=== PATIENT | female | born 1985 | race African-American/Black ===

== ENCOUNTER 2017-01-20 04:40 | Inpatient (IN) | payer OTHER ==
[2017-01-20] MEDS ORDERED: DEXTROSE 5%-LACTATED RINGERS 1,000 ML IV ONE (05:30)
[2017-01-20 09:28] VITALS: BMI 36.7
[2017-01-20] MEDS ORDERED: AMPICILLIN - 2 GM in SODIUM CHLORIDE 100 ML IVPB ONE (09:41)
[2017-01-20 09:53] LABS: CALCIUM 8.2 mg/dL (8.5-10.1); CREATININE 0.5 mg/dL (0.55-1.02)
[2017-01-20 09:58] LABS: BASOPHIL 0.1 % (0-2.0); EOSINOPHIL 0.9 % (0-4.5); MCH 22.2 pg (25.7-33.7); MCHC 32.3 g/dl (32.0-36.0); MEAN CELL VOLUME 68.8 fl (80-96); MEAN PLT VOLUME 7.9 fl (7.5-11.1); NEUTROPHILS 61.4 % (42.8-82.8); PLATELET COUNT 248 K/MM3 (134-434); RDW 18.9 % (11.6-15.6); WHITE BLOOD COUNT 5.9 K/mm3 (4.0-10.0)
[2017-01-20] MEDS: AMPICILLIN - 1 GM in SODIUM CHLORIDE 100 ML IVPB SCH ×2 (10:00→11:36)
[2017-01-20] MEDS: OXYTOCIN 15 UNITS/ LR 250 ML 250 ML IVPB SCH (10:00)
[2017-01-20 10:09] LABS: INR 1.04 (0.82-1.09); PROTHROMBIN TIME (PATIENT) 11.5 SEC (9.98-11.88)
[2017-01-20] MEDS ORDERED: AMPICILLIN - 2G/100 ML IVPB ONE (10:09)
--- NOTE | 2017-01-20 10:13 | HP ---
Past Medical History - Primary Care Physician PCP:: David Wei - Admission Chief Complaint: 31 yo P2 with at EGA 39w5d with PROM, not in labor. History of Present Illness: Pt reports LOF since 10pm last night. complicated by maternal obesity. 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: Yes: Migraine Cardiovascular: No: AFIB, Aneurysm, Aortic Insufficiency, Aortic Stenosis, CAD, CHF, Deep Vein Thrombosis, HTN, Hyperlipdemia, [place], Mitral Insufficiency, Mitral Stenosis, Murmur, Pulmonary Hypertension, Other Pulmonary: No: Asthma, Bronchitis, Cancer, COPD, O2 Dependent, Pneumonia, Previously Intubated, Pulmonary Embolus, Pulmonary Fibrosis, Sleep Apnea, Other Gastrointestinal: No: Ascites, Cancer, Constipation, Crohn's Disease, Diverticulitis, Diverticulosis, Esophageal Varices, Gastritis, GERD, GI Bleed, Hemorrhoids, Hiatal Hernia, Inflamatory Bowel Disease, Irritable Bowel Disease, Pancreatitis, Peptic Ulcer Disease, Ulcerative Colitis, Other Hepatobiliary: No: Cirrhosis, Cholelithiasis, Cholecystitis, Choledocholithiasis , Hepatitis A, Hepatitis B, Hepatitis C, Other Renal/: No: Renal Failure, Renal Inusuff, BPH, Cancer, Hematuria, Hemodialysis , Neurogenic Bladder, Renal Calculi, UTI, Other Reproductive: No: Ectopic , Endometriosis, Fibroids, PID, Polycystic Ovary Syndrome, Postmenopausal, Other ...: 4 ...Para: 2 ...Term: 22 ...: 0 ...Spon : 1 ...Induced : 0 ...LMP: 04/01/16 ... Weeks Gestation by Dates: 42 ...EDC by Dates: 01/06/17 ...EDC by Sono: 01/22/17 Heme/Onc: No: Anemia, B12 Deficiency, Bleeding Disorder, Cancer, Current Chemotherapy, Current Radiation Therapy, Hemochromatosis, Hypercoaguable State, Myeloproliferative Synd, Sickle Cell Disease, Sickle Cell Trait, Thrombocytopenia, Other Infectious Disease: No: AIDS, C-Diff, Herpes Zoster, HIV, MRSA, STD's, Tuberculosis, VREF, Other Psych: No: Addictions, Anxiety, Bipolar, Depression, Panic, Psychosis, Schizophrenia, Other Musculoskeletal: No: Bursitis, Chronic low back pain, Hemiparesis, Hemiplegia, Osteoarthritis, Paraplegia, Other Rheumatology: No: Fibromyalgia, Gout, Lupus, Rheumatoid Arthritis, Sarcoidosis, Vasculitis, Other ENT: No: Allergic Rhinitis, Sinusitis, Other Endocrine: No: Knott's Disease, Chandra's Disease, Diabetes Insipidus, Diabetes Mellitus, Hyperparathyroidism, Hyperthyroidism, Hypothyroidism, Osteopenia, SIADH, Other Dermatology: No: Basal Cell, Cellulitis, Eczema, Melanoma, Psoriasis, Squamous Cell, Other - Past Surgical History Past Surgical History: Yes: None Hx Myomectomy: No Hx Transabdominal Cerclage: No - Smoking History Smoking history: Never smoked Have you smoked in the past 12 months: No Aproximately how many cigarettes per day: 0 - Alcohol/Substance Use Hx Alcohol Use: No History of Substance Use: reports: None - Social History Usual Living Arrangement: Yes: With Child 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 Home Medications - Allergies Allergies/Adverse Reactions: Allergies Allergy/AdvReac Type Severity Reaction Status Date / Time No Known Allergies Allergy Verified 01/10/17 18:13 - Home Medications Home Medications: Ambulatory Orders Pnv95/Iron Fum/Folic Acid [ Caplet] 1 each PO DAILY 10/17/16 Family Disease History - Family Disease History Family History: Denies Review of Systems Findings/Remarks: Well appearing - Review of Systems Constitutional: reports: No Symptoms Eyes: reports: No Symptoms HENT: reports: No Symptoms Neck: reports: No Symptoms Cardiovascular: reports: No Symptoms Respiratory: reports: No Symptoms Gastrointestinal: reports: No Symptoms Genitourinary: reports: No Symptoms Breasts: reports: No Symptoms Reported Musculoskeletal: reports: No Symptoms Integumentary: reports: No Symptoms Neurological: reports: No Symptoms Endocrine: reports: No Symptoms Hematology/Lymphatic: reports: No Symptoms Psychiatric: reports: No Symptoms Pain Intensity: 0 Physical Exam - Maternity Vital Signs: Vital Signs Temperature 98.1 F 01/20/17 08:46 Pulse Rate 80 01/20/17 08:46 Respiratory Rate 20 01/20/17 08:46 Blood Pressure 114/72 01/20/17 08:46 O2 Sat by Pulse Oximetry (%) Constitutional: Yes: Well Nourished, No Distress, Calm Eyes: Yes: WNL, Conjunctiva Clear HENT: Yes: WNL, Atraumatic, Normocephalic Neck: Yes: WNL, Supple, Trachea Midline Cardiovascular: Yes: WNL, Regular Rate and Rhythm Lungs: Clear to auscultation, Normal air movement Breast(s): Yes: WNL - Abdominal Exam/OB Fundal Height: 40 Number of Fetuses: Single Presentation: Vertex Contractions: Yes Regularity: Irregular ([id number]) Intensity: Mild Monitor Mode: External Heart Rate (range): 130 Heart Rate Location: Midline Category: I Accelerations: Non-Uniform Decelerations: None - Vaginal Exam/OB Vaginal Bleediing: No Speculum Exam: No Dilatation (cm): 3 Effacement (%): 50 Amniotic Membrane Status: Leaking Presentation: Vertex/Position Station: -4 (adequate pelvimetry) - Physical Exam Musculoskeletal: Yes: WNL Extremities: Yes: WNL Edema: No Integumentary: Yes: WNL Deep Tendon Reflex Grade: Normal +2 ...Motor Strength: WNL Psychiatric: Yes: WNL, Alert, Oriented - Labs Lab Results: CBC, BMP 01/20/17 09:05 Hemorrhage Risk Assessment - Risk Factors Medium Risk Factors: Yes: None High Risk Factors: Yes: None Risk Score: 1 Risk Level: Medium Risk Imaging - Results Ultrasound: Report Reviewed Assessment/Plan 31 yo P2 with at EGA 39w5d with PROM, not in labor. Fetus requires no intervention. Plan to admit for labor induction. Pt declined conservative/ expectant mgt. Risks, benefits, alternatives of labor induction were discussed. Risks of pitocin, tachysystole, distress, shoulder dystocia, section, etc. explained. The pt requested to proceed. She also requested a BTL, if delivery by C/S.
[2017-01-20 12:47] LABS: HIV 1 & 2 AB NEGATIVE; HIV 1 AGp24 NEGATIVE
[2017-01-20] MEDS ORDERED: AMPICILLIN - 100 ML IVPB SCH (12:56)
[2017-01-20] MEDS: FENTANYL/BUPIVACAINE/NS/PF - PCEA - 50 ML DISP.SYRIN EP SCH (16:00)
[2017-01-20] MEDS ORDERED: WITCH HAZEL 50% (TUCKS) 40 PAD/JAR PAD TP PRN (17:14)
[2017-01-20] MEDS ORDERED: BISACODYL 10 MG SUPP.RECT RC PRN (17:14)
[2017-01-20] MEDS ORDERED: BENZOCAINE 20% 57 GM BOTTLE TP PRN (17:14)
[2017-01-20] MEDS ORDERED: METHYLERGONOVINE MALEATE 0.2 MG/1 ML AMP IM PRN (17:14)
[2017-01-20] MEDS ORDERED: BENZOCAINE 28 GM HEMORRHOIDAL OINTMENT TP PRN (17:14)
[2017-01-20] MEDS ORDERED: D5W-LR W/ 20 UNITS OXYTOCIN 1,000 ML IV SCH (17:15)
--- NOTE | 2017-01-20 17:26 | PN ---
Delivery - Delivery Vaginal Delivery: Spontaneous Type of Anesthesia: Epidural (was called to see patient with bradycardia, fhr down to 55bm. cx full 100 vx 0 mi . arom clear fluid , fhr recovered with accelration, pt pushing ,pernium short ,memraneous with pushing perinial muscles retracted , mid line episiotmy done , head dilivered , nasopharynx suctioned, ant and post shoulder dilivered with no difficult, live baby girl 9/9. episiotomy repair with great difficulty since from previous delivery anal sphinctor and muscles were retracted, reconstruction of sphinctor and muscle done, then perinum repaired in 3 layers, rectal exam ,good tone, no defect, ebl 300 cc) Episiotomy/Laceration: Midline Delivery, Single - Feeding Plan Initial Plan: Elected not to breastfeed exclusively throughout hospitalization
[2017-01-20 17:56] LABS: ANISOCYTOSIS 2+; HYPOCHROMIA 2+; PLATELET ESTIMATE ADEQUATE (NORMAL)
[2017-01-20 17:57] LABS: MICROCYTOSIS 2+
[2017-01-20] MEDS: AMPICILLIN - 100 ML IVPB SCH ×2 (18:01→23:07)
[2017-01-20] MEDS: ACETAMINOPHEN 325 MG TABLET (FP) PO PRN (18:15)
[2017-01-20] MEDS: IBUPROFEN 600 MG TABLET (FP) PO PRN (18:24)
[2017-01-20] MEDS: FERROUS SO4 325 MG TABLET (FP) PO SCH (18:24)
[2017-01-20 18:32] LABS: ARTERIAL BLD GAS O2 SATURATION 28.2 % (90-98.9); ARTERIAL BLOOD GAS BASE EXCESS -3.5 meq/l (-2-2); ARTERIAL BLOOD GAS HCO3 23.4 meq/L (22-26); ARTERIAL BLOOD GAS pH 7.29 (7.35-7.45)
[2017-01-20 18:33] LABS: ARTERIAL BLOOD GAS PO2 18.5 mmHg (80-100)
[2017-01-20 18:38] LABS: ARTERIAL BLD GAS O2 SATURATION 27.3 % (90-98.9); ARTERIAL BLOOD GAS BASE EXCESS -2.6 meq/l (-2-2); ARTERIAL BLOOD GAS HCO3 24.9 meq/L (22-26); ARTERIAL BLOOD GAS pH 7.28 (7.35-7.45)
[2017-01-20 18:39] LABS: PT. ON O2? NO
[2017-01-20 18:40] LABS: ARTERIAL BLOOD GAS PO2 17.9 mmHg (80-100)
[2017-01-21] MEDS: IBUPROFEN 600 MG TABLET (FP) PO PRN ×3 (01:28→22:57)
[2017-01-21] MEDS: ACETAMINOPHEN 325 MG TABLET (FP) PO PRN ×3 (01:29→22:56)
[2017-01-21] MEDS: AMPICILLIN - 100 ML IVPB SCH ×3 (02:05→20:41)
--- NOTE | 2017-01-21 07:42 | PN ---
Post Progress Note - Subjective Subjective: 31 yo P3 now, s/p , no complains Post Day: 1 Type of Delivery: Vital Signs: Vital Signs Temperature 98.2 F 01/21/17 06:00 Pulse Rate 92 H 01/21/17 06:00 Respiratory Rate 20 01/21/17 06:00 Blood Pressure 114/60 01/21/17 06:00 O2 Sat by Pulse Oximetry (%) 100 01/20/17 17:45 Breast Exam: Yes: Soft Uterus: Yes: Fundus Firm Abdomen/GI: Yes: Abdomen soft, Passing flatus, Tolerating PO Lochia: Yes: Rubra Lochia, amount: Small Extremities: Yes: Calves non-tender Perineum: Yes: Episiotomy Activity: Ambulating - Labs Labs: CBC WBC 5.9 K/mm3 (4.0-10.0) 01/20/17 09:05 RBC 4.53 M/mm3 (3.60-5.2) 01/20/17 09:05 Hgb 10.1 GM/dL (10.7-15.3) L 01/20/17 09:05 Hct 31.1 % (32.4-45.2) L 01/20/17 09:05 MCV 68.8 fl (80-96) L 01/20/17 09:05 MCHC 32.3 g/dl (32.0-36.0) 01/20/17 09:05 RDW 18.9 % (11.6-15.6) H 01/20/17 09:05 Plt Count 248 K/MM3 (134-434) 01/20/17 09:05 MPV 7.9 fl (7.5-11.1) 01/20/17 09:05 Neutrophils % 61.4 % (42.8-82.8) 01/20/17 09:05 Lymphocytes % 26.5 % (8-40) 01/20/17 09:05 Monocytes % 11.1 % (3.8-10.2) H 01/20/17 09:05 Eosinophils % 0.9 % (0-4.5) 01/20/17 09:05 Basophils % 0.1 % (0-2.0) 01/20/17 09:05 Platelet Estimate Adequate (NORMAL) 01/20/17 09:05 Hypochromic-Microcytic 2+ 01/20/17 09:05 Anisocytosis 2+ 01/20/17 09:05 Microcytosis 2+ 01/20/17 09:05 Assessment/Plan 31 yo P3 s/p VSS, Afibrile doing well Rh pos cont routine PP care
[2017-01-21] MEDS: FERROUS SO4 325 MG TABLET (FP) PO SCH (08:00)
[2017-01-21 08:53] LABS: BASOPHIL 0.3 % (0-2.0); EOSINOPHIL 0.8 % (0-4.5); MCHC 32.3 g/dl (32.0-36.0); MEAN CELL VOLUME 68.2 fl (80-96); NEUTROPHILS 69.4 % (42.8-82.8); PLATELET COUNT 241 K/MM3 (134-434); RDW 18.9 % (11.6-15.6); WHITE BLOOD COUNT 8.7 K/mm3 (4.0-10.0)
[2017-01-21] MEDS: PRENATAL VITAMINS W/ FOLIC ACID TABLET (FP) PO SCH (09:53)
[2017-01-21] MEDS: oxyCODONE HCL 5 MG TABLET PO PRN ×2 (10:46→18:37)
[2017-01-21] MEDS: OXYTOCIN 15 UNITS/ LR 250 ML 250 ML IVPB SCH (20:40)
[2017-01-21] MEDS: FENTANYL/BUPIVACAINE/NS/PF - PCEA - 50 ML DISP.SYRIN EP SCH (20:42)
[2017-01-21] MEDS ORDERED: SENNOSIDES/DOCUSATE COMBO (SENNA PLUS) TABLET (UD) PO PRN (22:00)
[2017-01-22] MEDS: oxyCODONE HCL 5 MG TABLET PO PRN ×2 (06:19→13:04)
[2017-01-22] MEDS: ACETAMINOPHEN 325 MG TABLET (FP) PO PRN (06:19)
[2017-01-22] MEDS: FERROUS SO4 325 MG TABLET (FP) PO SCH (08:00)
--- NOTE | 2017-01-22 08:57 | DS ---
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: Vital Signs Temperature 98.4 F 01/21/17 22:00 Pulse Rate 100 H 01/21/17 22:00 Respiratory Rate 18 01/21/17 22:00 Blood Pressure 127/73 01/21/17 22:00 O2 Sat by Pulse Oximetry (%) 100 01/20/17 17:45 Constitutional: Yes: Well Nourished, No Distress, Calm Eyes: Yes: WNL, Conjunctiva Clear HENT: Yes: WNL, Atraumatic, Normocephalic Neck: Yes: WNL, Supple, Trachea Midline Cardiovascular: Yes: WNL, Regular Rate and Rhythm Respiratory: Yes: WNL, Regular, CTA Bilaterally Gastrointestinal: Yes: WNL, Normal Bowel Sounds, Soft ...Rectal Exam: Yes: WNL Renal/: Yes: WNL Pelvis: Yes: WNL ....Post : Yes: Uterus firm, Uterus non-tender, Slight lochia rubra Breast(s): Yes: WNL Musculoskeletal: Yes: WNL Extremities: Yes: WNL Edema: Yes Edema: LLE: 1+, RLE: 1+ Integumentary: Yes: WNL Neurological: Yes: WNL, Alert, Oriented ...Motor Strength: WNL Psychiatric: Yes: WNL, Alert, Oriented Labs: CBC, BMP 01/21/17 08:20 01/20/17 09:05 Delivery - Delivery Vaginal Delivery: Spontaneous Type of Anesthesia: Local, Epidural Episiotomy/Laceration: Midline EBL (cc): 300 Delivery, Single - Stages of Labor Date 1st Stage Initiatied: 01/20/17 Time 1st Stage Initiated: 13:30 Date 2nd Stage Initiated: 01/20/17 Time 2nd Stage Initiated: 16:28 Date of Delivery: 01/20/17 Time of Delivery: 16:43 Time Placenta Delivered: 16:45 - 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 You may walk unlimited anel of and climb stairs. You may resume driving the car when you feel safe and comfortable behind the wheel. No sexual activity as instructed. Wound care If you have a bandage, leave it on, and keep dry for 48-72 hours. After that time discard the outer bandage. If they are tapes on the skin under the out of bandage leave them in place. They will peel off in the next 7 to 10 days. Do Not Peel them off. You may shower the day after surgery. If there are tapes present on the skin, you may shower over them. Diet There are no dietary restrictions. Eat healthy, high-fiber foods. Drink 6 to 8 glasses of liquid each day. This will assist in keeping your bowels are regular. Pain management You may take Tylenol or acetaminophen or Ibuprofen (for example, Motrin, Advil etc.) from my pain prescription medication is ordered should be taken as prescribed for moderate to severe pain. Call MD for any of the following: Severe pain not relieved by medication Fever of 101 or higher Excessive bleeding or drainage on dressing Inability to urinate Referrals: Andrea Brown MD [Staff Physician] - Disposition: HOME - Home Medications Comprehensive Discharge Medication List: Ambulatory Orders Pnv95/Iron Fum/Folic Acid [ Caplet] 1 each PO DAILY 10/17/16
[2017-01-22] MEDS: PRENATAL VITAMINS W/ FOLIC ACID TABLET (FP) PO SCH (10:30)
[2017-01-22 11:22] VITALS: BP 115/59; PULSE 94; TEMP 98.2
[2017-01-22] MEDS: IBUPROFEN 600 MG TABLET (FP) PO PRN (13:05)
[2017-01-28 10:35] LABS: PT. ON O2? NO
== END 2017-01-22 16:00 | disposition home or self-care (01) | DRG 775 ==
LOC: JDEL 04:40 → JLDR 08:25 → J3W 19:20
PROVIDERS: ADMIT Obstetrics & Gynecology; ATTEND Obstetrics & Gynecology
PROC: 10E0XZZ Delivery of Products of Conception, External Approach (ICD-10-PCS; principal; 2017-01-20)
PROC: 0W8NXZZ Division of Female Perineum, External Approach (ICD-10-PCS; 2017-01-20)
PROC: 3E033VJ Introduction of Other Hormone into Peripheral Vein, Percutaneous Approach (ICD-10-PCS; 2017-01-20)
DX: O42.92 Full-term premature rupture of membranes, unspecified as to length of time between rupture and onset of labor (principal); O26.873 Cervical shortening, third trimester; Z3A.39 39 weeks gestation of pregnancy; Z37.0 Single live birth
CPT/HCPCS: 36415; 36600; 59025; 59409; 71020-TC; 80048; 82803; 85025; 85610; 85730; 86593; 86850; 86900; 86901; 87389

== ENCOUNTER 2017-04-21 05:21 | Day surgery (SDC) | payer OTHER ==
[2017-04-15 10:37] VITALS: BMI 33.3
[2017-04-21] MEDS ORDERED: DEXAMETHASONE SOD PHOSPHATE 4 MG/1 ML VIAL ONE (07:33)
[2017-04-21] MEDS ORDERED: ATROPINE SO4 0.4 MG/1 ML VIAL ONE (07:33)
[2017-04-21] MEDS ORDERED: ePHEDrine SULFATE 50 MG/1 ML AMPULE ONE (07:33)
[2017-04-21] MEDS ORDERED: GLYCOPYRROLATE 0.2 MG/1 ML VIAL ONE (07:33)
[2017-04-21] MEDS ORDERED: PHENYLEPHRINE HCL 10 MG/1 ML SINGLE DOSE VIAL ONE (07:33)
[2017-04-21] MEDS ORDERED: ceFAZolin SODIUM 1 GM VIAL ONE (07:33)
[2017-04-21] MEDS ORDERED: PROPOFOL 20 ML ONE ×2 (07:34)
[2017-04-21] MEDS ORDERED: ROCURONIUM BROMIDE 50 MG/5 ML VIAL ONE ×2 (07:34→08:53)
[2017-04-21] MEDS ORDERED: SUCCINYLCHOLINE CHLORIDE 200 MG/10 ML VIAL ONE (07:34)
[2017-04-21] MEDS ORDERED: BUPIVACAINE HCL/PF 0.5% (5MG/ML) 10 ML VIAL ONE (07:37)
[2017-04-21] MEDS ORDERED: MIDAZOLAM HCL 2 MG/2 ML SINGLE DOSE VIAL ONE (07:39)
[2017-04-21] MEDS ORDERED: ceFAZolin SODIUM 1 GM VIAL IVPB ONE (08:30)
[2017-04-21] MEDS ORDERED: NEOSTIGMINE METHYLSULFATE 0.5 MG/ML - 10 ML MDV ONE (08:53)
[2017-04-21] MEDS ORDERED: BUPIVACAINE HCL/PF 0.5% (5MG/ML) 10 ML VIAL IJ ONE (09:13)
[2017-04-21] MEDS ORDERED: ONDANSETRON 4 MG/2 ML VIAL IVPUSH PRN (09:40)
[2017-04-21] MEDS ORDERED: LACTATED RINGERS SOLUTION 1,000 ML IV SCH (09:45)
--- NOTE | 2017-04-21 09:56 | HP ---
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 Cardiovascular: No: AFIB, Aneurysm, Aortic Insufficiency, Aortic Stenosis, CAD, CHF, Deep Vein Thrombosis, HTN, Hyperlipdemia, [place], Mitral Insufficiency, Mitral Stenosis, Murmur, Pulmonary Hypertension, Other Gastrointestinal: No: Ascites, Cancer, Constipation, Crohn's Disease, Diverticulitis, Diverticulosis, Esophageal Varices, Gastritis, GERD, GI Bleed, Hemorrhoids, Hiatal Hernia, Inflamatory Bowel Disease, Irritable Bowel Disease, Pancreatitis, Peptic Ulcer Disease, Ulcerative Colitis, Other Hepatobiliary: No: Cirrhosis, Cholelithiasis, Cholecystitis, Choledocholithiasis , Hepatitis A, Hepatitis B, Hepatitis C, Other Renal/: No: Renal Failure, Renal Inusuff, BPH, Cancer, Hematuria, Hemodialysis , Neurogenic Bladder, Renal Calculi, UTI, Other ...Para: 3 Heme/Onc: No: Anemia, B12 Deficiency, Bleeding Disorder, Cancer, Current Chemotherapy, Current Radiation Therapy, Hemochromatosis, Hypercoaguable State, Myeloproliferative Synd, Sickle Cell Disease, Sickle Cell Trait, Thrombocytopenia, Other Infectious Disease: No: AIDS, C-Diff, Herpes Zoster, HIV, MRSA, STD's, Tuberculosis, VREF, Other Psych: No: Addictions, Anxiety, Bipolar, Depression, Panic, Psychosis, Schizophrenia, Other Musculoskeletal: No: Bursitis, Chronic low back pain, Hemiparesis, Hemiplegia, Osteoarthritis, Paraplegia, Other Rheumatology: No: Fibromyalgia, Gout, Lupus, Rheumatoid Arthritis, Sarcoidosis, Vasculitis, Other ENT: No: Allergic Rhinitis, Sinusitis, Other Endocrine: No: Alb[place]'s Disease, Chandra's Disease, Diabetes Insipidus, Diabetes Mellitus, Hyperparathyroidism, Hyperthyroidism, Hypothyroidism, Osteopenia, SIADH, Other Dermatology: No: Basal Cell, Cellulitis, Eczema, Melanoma, Psoriasis, Squamous Cell, Other - Past Surgical History Past Surgical History: Yes: None Hx Myomectomy: No Hx Transabdominal Cerclage: No Additional Surgical History: D&C - Smoking History Smoking history: Never smoked Have you smoked in the past 12 months: No Aproximately how many cigarettes per day: 0 - Alcohol/Substance Use Hx Alcohol Use: No History of Substance Use: reports: None - Social History Usual Living Arrangement: Yes: With Child 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 Home Medications - Allergies Allergies/Adverse Reactions: Allergies Allergy/AdvReac Type Severity Reaction Status Date / Time No Known Allergies Allergy Verified 04/21/17 07:23 - Home Medications Home Medications: Ambulatory Orders Pnv95/Iron Fum/Folic Acid [ Caplet] 1 each PO DAILY 10/17/16 Family Disease History - Family Disease History Family History: Unremarkable Review of Systems - Review of Systems Constitutional: reports: No Symptoms Eyes: reports: No Symptoms HENT: reports: No Symptoms Neck: reports: No Symptoms Cardiovascular: reports: No Symptoms Respiratory: reports: No Symptoms Gastrointestinal: reports: No Symptoms Genitourinary: reports: No Symptoms Breasts: reports: No Symptoms Reported Musculoskeletal: reports: No Symptoms Integumentary: reports: No Symptoms Neurological: reports: No Symptoms Endocrine: reports: No Symptoms Hematology/Lymphatic: reports: No Symptoms Psychiatric: reports: No Symptoms Pain Intensity: 0 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: Vital Signs Temperature 98.3 F 04/21/17 07:28 Pulse Rate 92 H 04/21/17 07:28 Respiratory Rate 18 04/21/17 07:28 Blood Pressure 119/71 04/21/17 07:28 O2 Sat by Pulse Oximetry (%) 100 04/21/17 07:28 Constitutional: Yes: Well Nourished, No Distress, Calm Eyes: Yes: WNL, Conjunctiva Clear HENT: Yes: WNL, Atraumatic, Normocephalic Neck: Yes: WNL, Supple, Trachea Midline Cardiovascular: Yes: WNL, Regular Rate and Rhythm Respiratory: Yes: WNL, Regular, CTA Bilaterally Gastrointestinal: Yes: Normal Bowel Sounds, Soft, Abdomen, Obese ...Rectal Exam: Yes: WNL Renal/: Yes: WNL Pelvis: Yes: WNL External Genitalia: Yes: Normal Internal Exam Deferred: No Vaginal Exam: Yes: Normal Cervix: Yes: Normal Uterus: Yes: Normal Adnexa: Normal: Left, Right ....Post : Yes: Uterus firm, Uterus non-tender Musculoskeletal: Yes: WNL Extremities: Yes: WNL Edema: No Integumentary: Yes: WNL Neurological: Yes: WNL, Alert, Oriented ...Motor Strength: WNL Psychiatric: Yes: WNL, Alert, Oriented Assessment/Plan 31 yo P3 admitted for sterilization and D&C. We had a long discussion regarding risks, benefits and alternatives of surgery. I explained the risks of infection , bleeding, perforation, injury to underlying organs/structures, need for additional surgery to treat and injuries or complications, failed sterilization , etc. The pt verbalized her understanding and requested to proceed with surgery.
--- NOTE | 2017-04-21 09:59 | OP ---
Operative Note - Note: Operative Date: 04/21/17 Pre-Operative Diagnosis: Sterilization, endometrial polyps. Operation: Sterilization, D&C Findings: Normal uterus Post-Operative Diagnosis: Same as Pre-op (small perforation of uterine fundus- hemostatic) Surgeon: David Wei Consulting Actuary: Alcira Valente Anesthesiologist/ROOF SERVICE TECHNICIAN: Sirsiha Rojas Anesthesia: General Specimens Removed: Endometrial curettings. Estimated Blood Loss (mls): 70 Drains & Tubes with Location: Armenta catheter Drains, Volume Out (mls): 50 Blood Volume Replaced (mls): 0 Fluid Volume Replaced (mls): 600 Operative Report Dictated: Yes
[2017-04-21] MEDS ORDERED: ACETAMINOPHEN 1000 MG/100 ML VIAL (NON FORMULARY) IVPB ONE (10:00)
[2017-04-21 11:03] VITALS: TEMP 97.7
--- NOTE | 2017-04-21 11:17 | OP ---
DATE OF OPERATION: 04/21/2017 PREOPERATIVE DIAGNOSES: Voluntary sterilization, uterine polyps. POSTOPERATIVE DIAGNOSES: Voluntary sterilization, uterine polyps, small perforation of uterine fundus with good hemostasis noted. PROCEDURE: Dilation and curettage (D and C), laparoscopic tubal ligation via bipolar fulguration. SURGEON: David Wei MD TUBE OPERATOR: Alcira Valente MD ANESTHESIOLOGIST: Sirisha Rojas MD ANESTHESIA: General. IV FLUIDS: 600 mL. URINE OUTPUT: 50 mL of clear urine at the end of the procedure. COMPLICATIONS: Small fundal perforation of the uterus. Good hemostasis noted during the laparoscopy. PATHOLOGY: Uterine curettings. FINDINGS: Examination under anesthesia revealed a small, anteverted uterus with no pelvic or adnexal masses. Laparoscopy revealed a small, anteverted uterus with a fundal perforation that was hemostatic. Both fallopian tubes and ovaries were within normal limits. Visualized portions of liver, stomach, intestine were within normal limits. DESCRIPTION OF PROCEDURE: The patient was met preoperatively. Risks, benefits, and alternatives of surgery were discussed in detail. All questions were answered. The patient was brought to the OR with the IV running. The patient was placed on a surgical table in a supine position. General anesthesia was achieved without difficulty. Time-out procedure was conducted as per standard protocol. The patient was then placed in a dorsal lithotomy position using adjustable Juan stirrups. She was examined under anesthesia with the findings as described above. The patient was then prepped and draped in the usual sterile fashion. A Armenta catheter was inserted inside the bladder and left to drain to gravity. A vaginal speculum was introduced inside the uterus. The uterine cervix was dilated to accommodate size 23 Velasquez dilator. A sharp uterine curettage was then performed, and the tissue was submitted to pathology. Good hemostasis was noted. No complications were observed during uterine curettage. The surgeons then regloved and proceeded with the laparotomy. A 5-mm infraumbilical incision was made with a knife. A Visiport trocar was introduced through the umbilical incision into the peritoneal cavity without complications. The pneumoperitoneum was induced using CO2 gas. Examination of the abdominal and pelvic areas revealed a small uterine perforation in the fundal area. Good hemostasis was noted. The fallopian tubes and ovaries were within normal limits. A second 5-mm incision was made with a knife approximately 3 cm above the pubic symphysis in the midline. A second trocar was introduced under direct visualization. Bipolar cautery was used to grasp the left fallopian tube. The fallopian tube was followed to the fimbriated end. The midportion of the fallopian tube was then cauterized for the length of approximately 3 cm. The right fallopian tube was then grasped and followed to the fimbriated end. The right fallopian tube was also cauterized for the length of approximately 3 cm. Once again, good hemostasis was noted. The pelvic cavity was irrigated with copious amounts of normal saline. The saline was aspirated, and once again, good hemostasis was confirmed. All of the instruments were removed from the patient. Sponge, lap, and instrument counts were correct. Pneumoperitoneum was reduced. The patient was given 0.5% Marcaine for the umbilical and suprapubic incisions. The uterine manipulation was also removed. The Armenta catheter remained inside the bladder upon transfer to the recovery room. The patient was transferred to the recovery room awake and in stable condition. Luis E [id number]
[2017-04-21] MEDS ORDERED: oxyCODONE HCL 5 MG TABLET ONE (11:51)
[2017-04-21] MEDS ORDERED: oxyCODONE HCL 5 MG TABLET PO ONE (12:00)
[2017-04-21 13:07] VITALS: BP 122/66; PULSE 67
--- NOTE | 2017-04-22 11:39 | PATH ---
Surgical Pathology Report Patient Name: KRISTIAN YANG [facility]. Rec. #: [id number] /Age/Gender: 1985 (Age: 31) / F Account: [id number] Location: [facility] SURGICAL Taken: 04/21/2017 Received: 04/21/2017 Reported: 04/22/2017 Physicians: David Wei M.D. Specimen(s) Received ENDOMETRIAL CURETTINGS Clinical History Endometrial polyps, fibroids of uterus, voluntary sterilization Final Diagnosis ENDOMETRIUM, CURETTAGE: FRAGMENTS OF SECRETORY TYPE ENDOMETRIUM WITH AREAS SUGGESTIVE OF ENDOMETRIAL POLYP. FRAGMENTS OF BENIGN SMOOTH MUSCLE. FRAGMENTS OF BENIGN ENDOCERVICAL TISSUE. FRAGMENTS OF BENIGN SQUAMOUS EPITHELIUM. Electronically Signed Marcus Parr M.D. Gross Description Received in formalin labeled "endometrial curettings" is a 5.2 x 3.5 x 0.4 cm aggregate of darling-brown soft tissue fragments admixed with blood clot. The formalin is filtered and the specimen is entirely submitted in 4 cassettes. /04/21/2017 [facility]/04/21/2017
== END 2017-04-21 14:47 | disposition home or self-care (01) ==
LOC: JASU-SURG 05:21
PROVIDERS: ATTEND Obstetrics & Gynecology
PROC: 0U574ZZ Destruction of Bilateral Fallopian Tubes, Percutaneous Endoscopic Approach (ICD-10-PCS; 2017-04-21)
PROC: 0UDB7ZX Extraction of Endometrium, Via Natural or Artificial Opening, Diagnostic (ICD-10-PCS; principal; 2017-04-21 08:00)
DX: Z30.2 Encounter for sterilization (principal); N84.0 Polyp of corpus uteri
CPT/HCPCS: 84703; 88305-TC; 94760

== ENCOUNTER 2017-07-29 21:35 | Emergency (ER) | payer OTHER ==
[2017-07-29 21:44] VITALS: BP 113/67; PULSE 86; TEMP 98.1; BMI 34.9
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
[2017-07-29] MEDS ORDERED: ACETAMINOPHEN 325 MG TABLET (FP) PO ONE (22:35)
[2017-07-29] MEDS ORDERED: KETOROLAC TROMETHAMINE 60 MG/2 ML VIAL IM ONE (22:35)
[2017-07-29 22:41] LABS: URINE APPEARANCE Clear; URINE BILIRUBIN Negative (NEGATIVE); URINE BLOOD Negative (NEGATIVE); URINE GLUCOSE (UA) Negative (NEGATIVE); URINE KETONE Negative (NEGATIVE); URINE NITRITE Negative (NEGATIVE); URINE PROTEIN Negative (NEGATIVE)
[2017-07-29 22:42] LABS: URINE COLOR YELLOW; URINE LEUK ESTERASE NEGATIVE (NEGATIVE)
[2017-07-29] MEDS ORDERED: KETOROLAC TROMETHAMINE 60 MG/2 ML VIAL ONE (23:25)
== END 2017-07-29 23:59 | disposition home or self-care (01) ==
LOC: FER 21:35
PROC: 3E0233Z Introduction of Anti-inflammatory into Muscle, Percutaneous Approach (ICD-10-PCS; principal; 2017-07-29)
DX: R51 Headache (principal); M54.2 Cervicalgia; V43.52XA Car driver injured in collision with other type car in traffic accident, initial encounter; Y93.89 Activity, other specified; Y92.410 Unspecified street and highway as the place of occurrence of the external cause; G89.29 Other chronic pain
CPT/HCPCS: 72050-TC; 81003; 84703; 99282-25

== ENCOUNTER 2020-06-13 22:59 | Emergency (ER) | payer OTHER ==
--- NOTE | 2020-06-13 23:06 | PDOC ---
History of Present Illness - General Chief Complaint: Chest Pain Stated Complaint: CHEST PAIN Time Seen by Provider: 06/13/20 23:03 History Source: Patient Exam Limitations: No Limitations - History of Present Illness Initial Comments: 06/13/20 23:46 This is a 34-year-old female who comes in complaining of shortness of breath. Patient had a COVID infection that was moderately severe back in February of this year. Ever since then patient said that she has had some baseline shortness of breath but it is gotten progressively worse over the last several weeks. Patient saw her primary care doctor had a chest x-ray that was read as normal. Patient had blood work does not know the results and does not know if a troponin was done. Patient otherwise denies any cough, fever, chills, congestion. Patient said there is a pleuritic discomfort with deep inspiration in the area of her anterior chest. Patient otherwise denies any cardiac risk factors. Allergies: as per nursing notes Past Medical History: none Social history: Lives with family. No smoking. No alcohol. No illicit drugs. Surgical history: None General: No fevers or chills, no weakness, no weight loss HEENT: No change in vision. No sore throat,. No ear pain CardioVascular: + chest discomfort. + shortness of breath Respiratory:No cough, or wheezing. Gastrointestinal: no nausea, vomiting, diarrhea or constipation, No rectal bleeding Genitourinary: No dysuria, hematuria, or frequency Musculoskeletal: No joint or muscle pain or swelling Neurologic: No headache, vertigo, dizziness or loss of consciousness Psychiatric: nor depression Skin: No rashes or easy bruising Endocrine: no increased thirst or abnormal weight change Allergic: no skin or latex allergy All other systems reviewed and normal Exam: General: Well-nourished well-developed individual, no acute distress HEENT: Throat: Normal, tonsils normal, no erythema or exudate Neck: Supple, no meningeal signs, no lymphadenopathy Eyes::Pupils equal reactive and round, extraocular motion intact Chest: Nontender to palpation Cardiac: S1-S2 normal, regular rate and rhythm, no murmurs rubs or gallops Respiratory: Lungs clear to auscultation bilateral Abdomen: Soft, nondistended, normal bowel sounds, there is no tenderness on palpation diffusely Extremities: Warm, dry, no cyanosis, clubbing, or edema Skin: No rashes Neuro: Alert and oriented x3, CN II - XII intact, nonfocal exam with normal strength, normal sensation, normal reflexes, normal gait, Psych: Normal mood and affect EKG shows normal sinus rhythm at a rate of [address]-T wave changes possible LVH Troponin was sent and not measurable. Patient already has an appointment with a offshoring manager to follow-up and an appointment for reevaluation by her primary care doctor. Patient discharged we will follow-up with offshoring manager for an echo and her primary care doctor. Past History - Medical History Allergies/Adverse Reactions: Allergies Allergy/AdvReac Type Severity Reaction Status Date / Time No Known Allergies Allergy Verified 07/29/17 21:39 Home Medications: Ambulatory Orders Atenolol [Tenormin -] 25 mg PO DAILY 06/13/20 Asthma: No Cancer: No Cardiac Disorders: No Diabetes: No GI Disorders: Yes (GASTRITIS H.PYLORI) HTN: No Seizures: No Thyroid Disease: No - Reproductive History (#): 4 Para: 2 Therapeutic (s) & number: Yes (1) Spontaneous : 0 - Psycho-Social/Smoking History Smoking History: Never smoked Have you smoked in the past 12 months: No Number of Cigarettes Smoked Daily: 0 *Physical Exam - Vital Signs Last Vital Signs Temp Pulse Resp BP Pulse Ox 98.1 F 116 H 20 137/88 100 06/13/20 23:01 06/13/20 23:01 06/13/20 23:01 06/13/20 23:01 06/13/20 23:01 ED Treatment Course - Medications Given in the ED: ED Medications Discontinued Medications Generic Name Dose Route Start Last Admin Trade Name Denia PRN Reason Stop Dose Admin Ketorolac Tromethamine 60 mg 06/13/20 23:25 06/13/20 23:35 Toradol Injection - IM 06/13/20 23:26 60 mg ONCE ONE Administration Discharge - Discharge Information Problems reviewed: Yes Clinical Impression/Diagnosis: Chest pain, pleuritic, Dyspnea Condition: Stable Disposition: HOME - Admission No - Follow up/Referral - Patient Discharge Instructions Additional Instructions: Follow-up with your primary care doctor. Tylenol or Motrin as needed for pain. Return to the emergency department immediately with ANY new, persistent or worsening symptoms. Continue any medications as previously prescribed by your physician. You should follow up with your primary doctor as soon as possible regarding today's emergency department visit. . Please make sure your doctor reviews the results of your emergency evaluation. Thank you for coming to the Emergency Department today for your care. It was a pleasure to see you today. Please note that your evaluation is INCOMPLETE until you follow-up with your doctor. - Post Discharge Activity
[2020-06-13 23:12] VITALS: BP 137/88; PULSE 116; TEMP 98.1; BMI 36.3
[2020-06-13] MEDS ORDERED: KETOROLAC TROMETHAMINE 60 MG/2 ML VIAL IM ONE (23:25)
[2020-06-13] MEDS ORDERED: KETOROLAC TROMETHAMINE 60 MG/2 ML VIAL ONE (23:30)
--- NOTE | 2020-06-14 09:11 | EKG ---
Test Reason : Blood Pressure : / mmHG Vent. Rate : 101 BPM Atrial Rate : 101 BPM P-R Int : 154 ms QRS Dur : 082 ms QT Int : 326 ms P-R-T Axes : 046 015 032 degrees QTc Int : 422 ms SINUS TACHYCARDIA MINIMAL VOLTAGE CRITERIA FOR LVH, MAY BE NORMAL VARIANT POSSIBLE INFERIOR INFARCT , AGE UNDETERMINED ABNORMAL ECG NO PREVIOUS ECGS AVAILABLE Confirmed by Hemal Day ([id number]) on 06/14/2020 9:10:50 AM Referred By: ALONSO HUITRON Confirmed By:Hemal Day
== END 2020-06-14 01:59 | disposition home or self-care (01) ==
LOC: FER 22:59
PROC: 3E0233Z Introduction of Anti-inflammatory into Muscle, Percutaneous Approach (ICD-10-PCS; principal; 2020-06-13)
DX: R07.9 Chest pain, unspecified (principal); R06.09 Other forms of dyspnea
CPT/HCPCS: 36415; 84484; 93005; 99284-25